=== PATIENT | male | born 1950 | race Caucasian/White ===

== ENCOUNTER 2017-12-16 06:56 | Emergency (ER) | payer OTHER ==
[~2017-12-16] VITALS: Ht 177.8 cm; Wt 84.2 kg
[~2017-12-16 06:56] MED LIST: ALLERGY MED; CELEBREX200 MG PO; CHOLESTEROL MED; METHOCARBAMOL500 MG PO; OXYCODONE HCL5 MG PO; SIMVASTATIN40 MG PO
[2017-12-16 07:34] LABS: BASOPHIL (%) 0.6 % (0-1); EOSINOPHIL (%) 3.4 % (0-5); EOSINOPHIL COUNT 0.2 K/uL (0-0.3); HEMATOCRIT 45.5 % (38.0-50.0); IMMATURE GRANULOCYTE (%) 0.3 % (0.0-0.7); LYMPHOCYTE (%) 25.2 % (15-42); LYMPHOCYTE COUNT 1.6 K/uL (1.0-2.8); MCH 30.3 PG (29.0-34.0); MCV 91.9 FL (86-99); MONOCYTE (%) 5.9 % (3-12); MONOCYTE COUNT 0.4 K/uL (0-0.8); NEUTROPHIL (%) 64.6 % (45-76); NEUTROPHIL COUNT 4.2 K/uL (1.8-6.4); PLATELET COUNT 144 K/uL (156-360); RBC DIS.WIDTH-CV 12.1 % (11.8-14.6); RBC DIS.WIDTH-SD 41.2 % (39-53); RED BLOOD COUNT 4.95 M/uL (4.00-5.50); WHITE BLOOD COUNT 6.5 K/uL (4.1-10.2)
[2017-12-16 08:09] LABS: CHLORIDE 107 MEQ/L (99-109); CREATINE KINASE 250 IU/L (1-294); GFR ESTIMATE (CALCULATED) > 59 mL/min/ (58.99-99999); GLUCOSE 139 mg/dL (70-99); POTASSIUM 4.5 MEQ/L (3.7-5.4); SODIUM 143 MEQ/L (136-147); TOTAL CK 250 IU/L (1-294); UREA NITROGEN (BUN) 23 mg/dL (9-23)
[2017-12-16 08:10] LABS: TROP-I INTERPRETATION NEGATIVE; TROPONIN-I < 0.01 ng/mL (0.0-0.30)
[2017-12-16] MEDS ORDERED: FLEXERIL10 MG PO (08:49)
[2017-12-16] MEDS ORDERED: MOTRIN800 MG PO (08:49)
[2017-12-16 08:58] VITALS: BP 141/83
[2017-12-16 09:25] LABS: CKMB RELATIVE INDEX 3.4 (0.0-3.9)
[2017-12-16 09:29] LABS: CK-MB 8.5 ng/mL (0.0-4.9)
== END 2017-12-16 08:59 | disposition home or self-care (01) ==
LOC: EME 06:56
PROVIDERS: Emergency Medicine
DX: S29.012A Strain of muscle and tendon of back wall of thorax, initial encounter (principal); E78.5 Hyperlipidemia, unspecified
CPT/HCPCS: 71046; 80048; 82550; 82553; 84484; 85025; 93005; 99281; 99284; J1885